=== PATIENT | male | born 1980 | race Caucasian/White ===

== ENCOUNTER 2017-10-25 09:25 | Inpatient (IN) | payer SELFPAY ==
[~2017-10-25] VITALS: Ht 170.2 cm; Wt 63.5 kg
[2017-10-25] MEDS ORDERED: SODIUM CHLORIDE 0.9% 1,000 ML IV ONE ×2 (11:14→13:00)
[2017-10-25] MEDS ORDERED: CHLORDIAZEPOXIDE 25MG CAPSULE PO ONE (11:15)
[2017-10-25 11:42] LABS: BASOPHILS % 0.2 % (0.0-2.0); EOSINOPHILS % 0.1 % (0.0-5.0); HEMATOCRIT. 38.8 % (36.0-48.0); HEMOGLOBIN. 14.1 g/dL (12.0-16.0); MEAN CORPUSCULAR HEMOGLOBIN 32.5 pg (28.0-32.0); MEAN CORPUSCULAR VOLUME 89.8 fL (81.0-99.0); MEAN PLATELET VOLUME 7.6 fl (7.4-10.4); MONOCYTES % 8.3 % (2.0-8.0); NEUTROPHILS % 78.4 % (40.0-76.0); PLATELET 285 x1000/uL (130-400); RED BLOOD CELL COUNT 4.32 mill/uL (4.2-5.4); RED CELL DISTRIBUTION WIDTH 12.1 % (11.6-14.6)
[2017-10-25 12:40] LABS: CHLORIDE 72 mEq/L (98-107)
[2017-10-25 12:47] LABS: CARBON DIOXIDE 31 mEq/L (21-32)
[2017-10-25] MEDS ORDERED: POTASSIUM CHLORIDE INJ 40 MEQ in DEXT 5% WATER 250 ML IV ONE (13:00)
[2017-10-25] MEDS ORDERED: ONDANSETRON HCL 4MG/2ML VIAL IV ONE (13:00)
[2017-10-25] MEDS ORDERED: SODIUM CHLORIDE 0.9% 1,000 ML IV SCH (13:00)
[2017-10-25] MEDS ORDERED: POTASSIUM CHLORIDE 20MEQ TABLET SR PO ONE (13:00)
[2017-10-25] MEDS ORDERED: IPRATROPIUM/ALBUTEROL 0.5-3(2.5)MG/3ML NEB INH PRN (16:15)
[2017-10-25] MEDS ORDERED: DIPHENHYDRAMINE 50MG/ML VIAL IV PRN (16:15)
[2017-10-25] MEDS ORDERED: DOCUSATE SODIUM 100MG CAPSULE PO PRN (16:15)
[2017-10-25] MEDS ORDERED: ONDANSETRON HCL 4MG/2ML VIAL IV PRN (16:15)
[2017-10-25] MEDS ORDERED: CLONIDINE 0.1MG TABLET PO PRN (16:15)
[2017-10-25] MEDS ORDERED: NITROGLYCERIN 0.4MG TABLET SL SL PRN (16:15)
[2017-10-25] MEDS ORDERED: LORAZEPAM 0.5MG TABLET PO PRN (16:15)
[2017-10-25] MEDS ORDERED: ZOLPIDEM TARTRATE 5MG TABLET PO PRN (16:15)
[2017-10-25] MEDS ORDERED: MAGNESIUM/ALUMINUM HYDROXIDE/SIMETHICONE 30ML UDC PO PRN (16:15)
[2017-10-25] MEDS ORDERED: ACETAMINOPHEN 325MG TABLET PO PRN (16:15)
[2017-10-25] MEDS ORDERED: GUAIFENESIN 200MG/10ML SUGAR FREE UDC PO PRN (16:15)
[2017-10-25 16:21] LABS: CLARITY URINE CLEAR (CLEAR); COLOR URINE ORANGE (YELLOW); GLUCOSE URINE 1+ (NEGATIVE); KETONES URINE 1+ (NEGATIVE); LEUKOCYTE ESTERASE URINE NEGATIVE (NEGATIVE); NITRITE URINE NEGATIVE (NEGATIVE); OCCULT BLOOD URINE NEGATIVE (NEGATIVE); PROTEIN URINE TRACE (NEGATIVE); SPECIFIC GRAVITY URINE 1.012 (1.005-1.030)
[2017-10-25 16:32] LABS: *AMPHETAMINES SCREEN URINE NEGATIVE (NEGATIVE); *BENZODIAZEPINES SCREEN URINE NEGATIVE (NEGATIVE); *COCAINE SCREEN URINE NEGATIVE (NEGATIVE); CANNABINOID URINE SCREEN NEGATIVE (NEGATIVE); METHADONE URINE SCREEN NEGATIVE (NEGATIVE); OPIATES URINE SCREEN NEGATIVE (NEGATIVE); PHENCYCLIDINE URINE SCREEN NEGATIVE (NEGATIVE)
[2017-10-25 16:50] LABS: *BARBITURATES SCREEN URINE NEGATIVE (NEGATIVE)
[2017-10-25] MEDS ORDERED: KETOROLAC 15MG/ML VIAL IV PRN (17:30)
[2017-10-25] MEDS ORDERED: METF500T4 PO (17:37)
[2017-10-25] MEDS ORDERED: INSU100V3 SUBCUT (17:37)
[2017-10-25 17:40] VITALS: BP 111/70
[2017-10-25] MEDS ORDERED: DEXTROSE 50% WATER 50ML SYRINGE IV PRN (18:00)
[2017-10-25] MEDS: SODIUM CHLORIDE 0.9% 1,000 ML IV SCH (18:28)
[2017-10-25 20:00] VITALS: BP 119/74
[2017-10-25] MEDS ORDERED: NA PHOS,M-B/NA PHOS,DI-BA ENEMA 118ML PR PRN (20:00)
[2017-10-25] MEDS ORDERED: MVI, ADULT NO.1 10 ML, FOLIC ACID 1 MG, THIAMINE HCL 100 MG in SODIUM CHLORIDE 0.9% 1,0... IV SCH ×4 (20:00)
[2017-10-25] MEDS: FAMOTIDINE 20MG/2ML VIAL IV SCH (20:40)
[2017-10-25] MEDS: INSULIN LISPRO 100 UNITS/ML SUBCUT SCH (21:05)
[2017-10-25] MEDS: BLOOD SUGAR DIAGNOSTIC STRIP TEST SCH (21:06)
[2017-10-25 23:14] LABS: CREATINE KINASE 99 IU/L (39-308); CREATINE KINASE MB FRACTION < 0.5 ng/mL (0.5-3.6); TROPONIN I < 0.02 ng/mL (0.00-0.04)
[2017-10-26] VITALS: BP 107/68
[2017-10-26 04:00] VITALS: BP 107/61
[2017-10-26 06:05] LABS: BASOPHILS % 0.1 % (0.0-2.0); EOSINOPHILS % 0.9 % (0.0-5.0); HEMATOCRIT. 32.5 % (42.0-52.0); HEMOGLOBIN. 11.8 g/dL (14.0-18.0); LYMPHOCYTES % 29.7 % (20.0-50.0); MEAN CORPUSCULAR HEMOGLOBIN 33.7 pg (28.0-32.0); MEAN CORPUSCULAR VOLUME 92.5 fL (80.0-94.0); MEAN PLATELET VOLUME 7.6 fl (7.4-10.4); MONOCYTES % 13.8 % (2.0-8.0); NEUTROPHILS % 55.5 % (40.0-76.0); PLATELET 217 x1000/uL (130-400); RED BLOOD CELL COUNT 3.51 mill/uL (4.7-6.1); RED CELL DISTRIBUTION WIDTH 12.2 % (11.6-14.6)
[2017-10-26] MEDS: SODIUM CHLORIDE 0.9% 1,000 ML IV SCH ×2 (06:14→21:00)
[2017-10-26 06:45] LABS: CARBON DIOXIDE 27 mEq/L (21-32); CHLORIDE 96 mEq/L (98-107)
[2017-10-26] MEDS: BLOOD SUGAR DIAGNOSTIC STRIP TEST SCH ×4 (06:50→21:01)
[2017-10-26] MEDS: INSULIN LISPRO 100 UNITS/ML SUBCUT SCH ×4 (06:50→21:01)
[2017-10-26 06:51] LABS: CREATINE KINASE 71 IU/L (39-308); CREATINE KINASE MB FRACTION < 0.5 ng/mL (0.5-3.6); TROPONIN I < 0.02 ng/mL (0.00-0.04)
[2017-10-26 07:44] VITALS: BP 103/64
[2017-10-26] MEDS: FAMOTIDINE 20MG/2ML VIAL IV SCH ×2 (08:37→21:00)
[2017-10-26] MEDS ORDERED: POTASSIUM CHLORIDE 20MEQ/PACKET PO NR (10:15)
[2017-10-26 11:56] VITALS: BP 114/76
[2017-10-26] MEDS ORDERED: POTASSIUM CHLORIDE INJ 20 MEQ in SODIUM CHLORIDE 0.9% 100 ML IV NR (13:30)
[2017-10-26 16:00] VITALS: BP 129/78
[2017-10-26 20:00] VITALS: BP 111/71
[2017-10-27] VITALS: BP 110/69
[2017-10-27 04:00] VITALS: BP 107/67
[2017-10-27] MEDS: BLOOD SUGAR DIAGNOSTIC STRIP TEST SCH ×2 (06:39→12:10)
[2017-10-27] MEDS: INSULIN LISPRO 100 UNITS/ML SUBCUT SCH ×2 (06:47→12:40)
[2017-10-27 07:48] LABS: CHLORIDE 103 mEq/L (98-107)
[2017-10-27 08:00] VITALS: BP 110/74
[2017-10-27 08:02] LABS: CARBON DIOXIDE 25 mEq/L (21-32)
[2017-10-27] MEDS ORDERED: POTASSIUM CHLORIDE 20MEQ TABLET SR PO SCH (09:00)
[2017-10-27] MEDS: FAMOTIDINE 20MG/2ML VIAL IV SCH (09:03)
[2017-10-27] MEDS: SODIUM CHLORIDE 0.9% 1,000 ML IV SCH (09:04)
[2017-10-27 11:29] VITALS: BP 110/74
== END 2017-10-27 13:56 | disposition home or self-care (01) | DRG 425 ==
LOC: ER 09:35 → EDSEX 09:35 → 8WST 13:01 → ENRESERV 13:16
PROVIDERS: ADMIT Internal Medicine; ATTEND Internal Medicine
DX: E87.1 Hypo-osmolality and hyponatremia (principal); E11.65 Type 2 diabetes mellitus with hyperglycemia; E83.51 Hypocalcemia; E83.52 Hypercalcemia; R17 Unspecified jaundice; E87.5 Hyperkalemia; E87.6 Hypokalemia; F10.10 Alcohol abuse, uncomplicated
CPT/HCPCS: 36415; 80053; 80305; 81001; 82550; 82553; 82962; 83036; 83735; 84443; 84484; 85025; 93005; 93970; 96361; 96365; 96366; 96375; 99285; G0482; J1815; J2405; J3411; J3480; J3490; J7030; J7050; J7060